=== PATIENT | male | born 1950 | race Caucasian/White ===

== ENCOUNTER 2025-08-14 10:30 | Outpatient (CLI) | payer MEDICARE, MEDICAID ==
[2025-08-14 12:56] LABS: ALV-art Gradient 81.010 mmHg (0-20); Actual Bicarbonate (HCO3a) 30.8 mEq/L (22-28); Analyzer IN Cardio CS ER; Base Excess (BEa) 5.9 mEq/L (-2.0 to +3.0); CO2 Tension 45.4 mmHg (35.0-45.0); Calcium, Ionized (arterial) 1.09 mmol/L (1.12-1.30); Hematocrit-ABG 44 % (42.0-52.0); Hemoglobin (Hb) 15.1 g/dL (14.0-18.0); O2 Tension (PaO2), arterial 90.4 mmHg (> 70.0); Potassium - ABG Lab 4.26 mmol/L (3.70-5.30); Puncture Site Right Radial artery; pH, Arterial 7.450 (7.35-7.45)
== END 2025-08-14 10:31 | disposition home or self-care (01) ==
LOC: CSHCP 10:30
PROVIDERS: ATTEND Internal Medicine
DX: J44.9 Chronic obstructive pulmonary disease, unspecified (principal); R06.89 Other abnormalities of breathing
CPT/HCPCS: 36600; 82805; 94060; 94618; 94664; 94726; 94729